=== PATIENT | female | born 1970 | race African-American/Black ===

== ENCOUNTER 2022-08-21 17:36 | Inpatient (IN) | payer BC ==
[~2022-08-21] VITALS: Ht 162.6 cm; Wt 72.2 kg
[2022-08-21] MEDS ORDERED: NICARDIPINE 50 MG in SODIUM CHLORIDE 0.9% 230 ML IV STA ×2 (18:02→18:08)
[2022-08-21] MEDS ORDERED: LEVETIRACETAM 1000MG PREMIX 100 ML IV ONE (18:15)
[2022-08-21] MEDS ORDERED: DEXAMETHASONE 10 MG/ML VIAL IV ONE (18:30)
[2022-08-21 19:51] LABS: BASOPHILS % 0.4 % (0.0-2.0); EOSINOPHILS % 1.7 % (0.0-5.0); HEMATOCRIT. 36.6 % (36.0-48.0); HEMOGLOBIN. 12.4 g/dL (12.0-16.0); LYMPHOCYTES % 22.3 % (20.0-50.0); MEAN CORPUSCULAR HEMOGLOBIN 28.5 pg (28.0-32.0); MEAN CORPUSCULAR VOLUME 83.8 fL (81.0-99.0); MEAN PLATELET VOLUME 7.7 fl (7.4-10.4); MONOCYTES % 6.7 % (2.0-8.0); NEUTROPHILS % 68.9 % (40.0-76.0); PLATELET 325 x1000/uL (130-400); RED BLOOD CELL COUNT 4.37 mill/uL (4.2-5.4)
[2022-08-21 20:13] LABS: CHLORIDE 102 mEq/L (98-107)
[2022-08-21 20:24] LABS: ETHANOL BLOOD < 10 mg/dL
[2022-08-21] MEDS ORDERED: PROPOFOL 10MG/ML 100ML 100 ML IV STA (20:31)
[2022-08-21] MEDS ORDERED: ETOMIDATE 2MG/ML 10ML VIAL IV ONE ×2 (20:42→20:45)
[2022-08-21] MEDS ORDERED: SUCCINYLCHOLINE CHLORIDE 200MG/10ML IV ONE ×2 (20:42→20:45)
[2022-08-21] MEDS ORDERED: FENTANYL 2500MCG/250ML PMX 250 ML IV ONE (20:45)
[2022-08-22] VITALS (62 sets, daily range): BP systolic 118–168; BP diastolic 60–108
[2022-08-22] MEDS ORDERED: PROPOFOL 10MG/ML 100ML 100 ML IV NR (01:45)
[2022-08-22] MEDS ORDERED: ACETAMINOPHEN 650MG SUPP PR PRN (09:45)
[2022-08-22] MEDS ORDERED: NICARDIPINE 50 MG in SODIUM CHLORIDE 0.9% 230 ML IV PRN (09:45)
[2022-08-22] MEDS ORDERED: ONDANSETRON HCL 4MG/2ML INJ IV PRN (09:45)
[2022-08-22] MEDS ORDERED: DEXTROSE 50% WATER 50ML SYRINGE IV PRN (09:45)
[2022-08-22] MEDS: PANTOPRAZOLE SODIUM 40 MG/VIAL IV SCH (10:26)
[2022-08-22] MEDS: DEXT 5%/LACTATED RINGERS 1,000 ML IV SCH (10:27)
[2022-08-22] MEDS: BLOOD SUGAR DIAGNOSTIC STRIP TEST SCH ×3 (11:15→21:00)
[2022-08-22] MEDS: LEVETIRACETAM 500MG PREMIX 100 ML IV SCH ×2 (11:19→21:52)
[2022-08-22] MEDS: DEXAMETHASONE 4MG/ML 1ML VIAL IV SCH ×3 (11:19→23:56)
[2022-08-22] MEDS: INSULIN LISPRO 100 UNITS/ML SUBCUT SCH ×3 (11:23→21:51)
[2022-08-22] MEDS ORDERED: PROPOFOL 10MG/ML 100ML 100 ML IV PRN ×2 (11:30→17:15)
[2022-08-22] MEDS ORDERED: FENTANYL CITRATE/PF 2,500 MCG in SODIUM CHLORIDE 0.9% 200 ML IV PRN (11:30)
[2022-08-22] MEDS: NICARDIPINE 100 MG in SODIUM CHLORIDE 0.9% 60 ML IV PRN ×2 (11:39→18:43)
[2022-08-22 12:08] LABS: BG BASE EXCESS 3.2 mmol/L (-2.0-2.0); BG CARBOXYHEMOGLOBIN 0.5 % (0.5-1.5); BG DEOXYHEMOGLOBIN 0.3 % (0.0-5.0); BG FRACTION INSPIRED OXYGEN 60; BG HCO3 ACT 24.9 mmol/L (22.0-26.0); BG METHEMOGLOBIN 0.1 % (0.0-1.5); BG OXYGEN SATURATION 99.7 % (92.0-98.5); BG OXYHEMOGLOBIN 99.1 % (94.0-97.0); BG PCO2 29.7 mmHg (35.0-45.0); BG PH 7.542 (7.350-7.450); BG PO2 306.1 mmHg (75.0-100.0); BG SAMPLE SITE RIGHT RADIAL; BG TOTAL HEMOGLOBIN 12.9 g/dL (12.0-18.0); BG VENT MODE VENT - AC
[2022-08-22 13:24] LABS: CLARITY URINE CLOUDY (CLEAR); COLOR URINE DARK YELLOW (YELLOW); KETONES URINE TRACE (NEGATIVE); LEUKOCYTE ESTERASE URINE 2+ (NEGATIVE); NITRITE URINE NEGATIVE (NEGATIVE); OCCULT BLOOD URINE 3+ (NEGATIVE); PROTEIN URINE 1+ (NEGATIVE); SPECIFIC GRAVITY URINE 1.035 (1.005-1.030)
[2022-08-22 13:40] LABS: HCG SCREEN NEGATIVE
[2022-08-22 14:13] LABS: *BARBITURATES SCREEN URINE NEGATIVE (NEGATIVE); *BENZODIAZEPINES SCREEN URINE NEGATIVE (NEGATIVE); *COCAINE SCREEN URINE NEGATIVE (NEGATIVE); CANNABINOID URINE SCREEN NEGATIVE (NEGATIVE); METHADONE URINE SCREEN NEGATIVE (NEGATIVE); OPIATES URINE SCREEN NEGATIVE (NEGATIVE); PHENCYCLIDINE URINE SCREEN NEGATIVE (NEGATIVE)
[2022-08-22 14:53] LABS: *AMPHETAMINES SCREEN URINE PRESUMTIVE POSITIVE (NEGATIVE)
[2022-08-22] MEDS: CEFTRIAXONE 1,000 MG in DEXTROSE 5% WATER 50 ML IV SCH (17:44)
[2022-08-23] VITALS (95 sets, daily range): BP systolic 121–165; BP diastolic 51–74
[2022-08-23 00:35] LABS: CREATINE KINASE MB FRACTION 4.3 ng/mL (0.5-3.6)
[2022-08-23 00:41] LABS: PROTHROMBIN TIME 10.8 sec (9.6-11.0)
[2022-08-23] MEDS: NICARDIPINE 100 MG in SODIUM CHLORIDE 0.9% 60 ML IV PRN ×4 (01:45→22:02)
[2022-08-23] MEDS: DEXT 5%/LACTATED RINGERS 1,000 ML IV SCH ×2 (05:27→20:07)
[2022-08-23 05:32] LABS: CHLORIDE 103 mEq/L (98-107)
[2022-08-23 05:43] LABS: HEMATOCRIT 38.6 % (36.0-48.0); HEMOGLOBIN 12.6 g/dL (12.0-16.0); MEAN CORPUSCULAR HEMOGLOBIN 27.8 pg (28.0-32.0); MEAN CORPUSCULAR VOLUME 85.1 fL (81.0-99.0); PLATELET 358 x1000/uL (130-400); RED BLOOD CELL COUNT 4.53 mill/uL (4.2-5.4); RED CELL DISTRIBUTION WIDTH 14.3 % (11.6-14.6)
[2022-08-23] MEDS: BLOOD SUGAR DIAGNOSTIC STRIP TEST SCH ×4 (06:10→20:13)
[2022-08-23] MEDS: DEXAMETHASONE 4MG/ML 1ML VIAL IV SCH ×2 (06:16→11:51)
[2022-08-23] MEDS: INSULIN LISPRO 100 UNITS/ML SUBCUT SCH ×4 (06:17→20:17)
[2022-08-23 07:46] LABS: PROTHROMBIN TIME 10.9 sec (9.6-11.0)
[2022-08-23] MEDS: PANTOPRAZOLE SODIUM 40 MG/VIAL IV SCH (08:01)
[2022-08-23] MEDS: LEVETIRACETAM 500MG PREMIX 100 ML IV SCH ×2 (08:01→20:06)
[2022-08-23 08:27] LABS: BG BASE EXCESS 2.5 mmol/L (-2.0-2.0); BG CARBOXYHEMOGLOBIN 0.3 % (0.5-1.5); BG DEOXYHEMOGLOBIN 1.3 % (0.0-5.0); BG FRACTION INSPIRED OXYGEN 30; BG HCO3 ACT 27.4 mmol/L (22.0-26.0); BG METHEMOGLOBIN 0.3 % (0.0-1.5); BG OXYGEN SATURATION 98.7 % (92.0-98.5); BG OXYHEMOGLOBIN 98.1 % (94.0-97.0); BG PCO2 43.3 mmHg (35.0-45.0); BG PH 7.419 (7.350-7.450); BG PO2 134.1 mmHg (75.0-100.0); BG SAMPLE SITE LEFT RADIAL; BG TOTAL HEMOGLOBIN 12.8 g/dL (12.0-18.0); BG VENT MODE VENT - AC
[2022-08-23 10:37] LABS: BG BASE EXCESS 1.8 mmol/L (-2.0-2.0); BG CARBOXYHEMOGLOBIN 0.3 % (0.5-1.5); BG DEOXYHEMOGLOBIN 0.8 % (0.0-5.0); BG FRACTION INSPIRED OXYGEN 40; BG HCO3 ACT 26.4 mmol/L (22.0-26.0); BG METHEMOGLOBIN 0.3 % (0.0-1.5); BG OXYGEN SATURATION 99.2 % (92.0-98.5); BG OXYHEMOGLOBIN 98.6 % (94.0-97.0); BG PCO2 41.7 mmHg (35.0-45.0); BG SAMPLE SITE RIGHT RADIAL; BG TOTAL HEMOGLOBIN 11.9 g/dL (12.0-18.0); BG VENT MODE VENT - CPAP
[2022-08-23] MEDS: HYDRALAZINE 20MG/ML VIAL IV PRN (11:51)
[2022-08-23] MEDS: CEFTRIAXONE 1,000 MG in DEXTROSE 5% WATER 50 ML IV SCH (17:11)
[2022-08-23] MEDS: ALBUTEROL (0.083%) 2.5MG/3ML NEB HHN SCH (20:28)
[2022-08-23] MEDS ORDERED: DILTIAZEM HCL 5MG/ML 5ML VIAL IV NR (23:30)
[2022-08-23] MEDS ORDERED: DILTIAZEM HCL 125 MG in DEXT 5% WATER 100 ML IV PRN (23:30)
[2022-08-23] MEDS ORDERED: DILTIAZEM HCL 125 MG in DEXTROSE 5% WATER 125 ML IV PRN (23:45)
[2022-08-24] VITALS (94 sets, daily range): BP systolic 113–164; BP diastolic 46–111
[2022-08-24] MEDS: ALBUTEROL (0.083%) 2.5MG/3ML NEB HHN SCH ×4 (01:17→20:22)
[2022-08-24] MEDS: ACETYLCYSTEINE 200MG/ML 20% VIAL 4ML INH SCH ×4 (01:17→13:17)
[2022-08-24 05:35] LABS: HEMATOCRIT 32.5 % (36.0-48.0); HEMOGLOBIN 10.8 g/dL (12.0-16.0); MEAN CORPUSCULAR VOLUME 84.3 fL (81.0-99.0); PLATELET 336 x1000/uL (130-400); RED BLOOD CELL COUNT 3.86 mill/uL (4.2-5.4); RED CELL DISTRIBUTION WIDTH 14.7 % (11.6-14.6)
[2022-08-24 05:36] LABS: PROTHROMBIN TIME 10.9 sec (9.6-11.0)
[2022-08-24] MEDS: NICARDIPINE 100 MG in SODIUM CHLORIDE 0.9% 60 ML IV PRN ×3 (05:39→18:25)
[2022-08-24] MEDS: BLOOD SUGAR DIAGNOSTIC STRIP TEST SCH ×4 (05:42→21:22)
[2022-08-24] MEDS: INSULIN LISPRO 100 UNITS/ML SUBCUT SCH ×4 (05:42→21:29)
[2022-08-24 06:06] LABS: CHLORIDE 109 mEq/L (98-107); PHOSPHORUS 4.2 mg/dL (2.5-4.9); T4 FREE 0.98 ng/dL (0.76-1.46)
[2022-08-24] MEDS: LEVETIRACETAM 500MG PREMIX 100 ML IV SCH ×2 (08:01→21:13)
[2022-08-24] MEDS: PANTOPRAZOLE SODIUM 40 MG/VIAL IV SCH (08:01)
[2022-08-24] MEDS: LACTATED RINGERS 1,000 ML IV SCH (11:16)
[2022-08-24] MEDS: HYDRALAZINE 20MG/ML VIAL IV PRN (12:10)
[2022-08-24] MEDS ORDERED: DEXTROSE 50% WATER 50ML SYRINGE IV PRN (12:45)
[2022-08-24] MEDS ORDERED: CAPTOPRIL 12.5MG TABLET PO SCH ×2 (12:45→17:00)
[2022-08-24] MEDS: METOPROLOL SUCCINATE 50MG ER TABLET PO SCH (13:27)
[2022-08-24] MEDS: LISINOPRIL 5MG TABLET PO SCH (15:47)
[2022-08-24] MEDS ORDERED: BLOOD SUGAR DIAGNOSTIC STRIP TEST SCH (16:30)
[2022-08-24] MEDS: CEFTRIAXONE 1,000 MG in DEXTROSE 5% WATER 50 ML IV SCH (17:12)
[2022-08-24] MEDS: INSULIN GLARGINE 100 UNITS/ML SUBCUT SCH (21:30)
[2022-08-25] VITALS (88 sets, daily range): BP systolic 101–170; BP diastolic 53–104
[2022-08-25] MEDS: ALBUTEROL (0.083%) 2.5MG/3ML NEB HHN SCH ×4 (01:31→19:50)
[2022-08-25] MEDS: LACTATED RINGERS 1,000 ML IV SCH ×2 (04:44→20:38)
[2022-08-25 06:03] LABS: CHLORIDE 111 mEq/L (98-107)
[2022-08-25] MEDS: BLOOD SUGAR DIAGNOSTIC STRIP TEST SCH ×4 (06:13→20:41)
[2022-08-25] MEDS: INSULIN LISPRO 100 UNITS/ML SUBCUT SCH ×4 (06:16→20:45)
[2022-08-25 07:18] LABS: BASOPHILS % 0.1 % (0.0-2.0); HEMATOCRIT. 32.8 % (36.0-48.0); HEMOGLOBIN. 10.6 g/dL (12.0-16.0); MEAN CORPUSCULAR HEMOGLOBIN 27.6 pg (28.0-32.0); MEAN CORPUSCULAR VOLUME 84.9 fL (81.0-99.0); MEAN PLATELET VOLUME 8.5 fl (7.4-10.4); MONOCYTES % 7.8 % (2.0-8.0); NEUTROPHILS % 81.1 % (40.0-76.0); PLATELET 302 x1000/uL (130-400); RED BLOOD CELL COUNT 3.86 mill/uL (4.2-5.4); RED CELL DISTRIBUTION WIDTH 14.5 % (11.6-14.6)
[2022-08-25 07:29] LABS: PROTHROMBIN TIME 10.9 sec (9.6-11.0)
[2022-08-25] MEDS: ACETYLCYSTEINE 200MG/ML 20% VIAL 4ML INH SCH ×2 (07:38→14:00)
[2022-08-25] MEDS: LEVETIRACETAM 500MG PREMIX 100 ML IV SCH ×2 (08:13→20:32)
[2022-08-25] MEDS: METOPROLOL SUCCINATE 50MG ER TABLET PO SCH (08:13)
[2022-08-25] MEDS: PANTOPRAZOLE SODIUM 40 MG/VIAL IV SCH (08:13)
[2022-08-25] MEDS: LISINOPRIL 5MG TABLET PO SCH (08:13)
[2022-08-25] MEDS: CEFTRIAXONE 1,000 MG in DEXTROSE 5% WATER 50 ML IV SCH (17:35)
[2022-08-25] MEDS: HYDRALAZINE 20MG/ML VIAL IV PRN (21:29)
[2022-08-25] MEDS: INSULIN GLARGINE 100 UNITS/ML SUBCUT SCH (21:58)
[2022-08-26] VITALS (49 sets, daily range): BP systolic 122–177; BP diastolic 69–111
[2022-08-26] MEDS: NICARDIPINE 100 MG in SODIUM CHLORIDE 0.9% 60 ML IV PRN (00:08)
[2022-08-26] MEDS: ACETYLCYSTEINE 200MG/ML 20% VIAL 4ML INH SCH ×4 (01:11→13:27)
[2022-08-26] MEDS: ALBUTEROL (0.083%) 2.5MG/3ML NEB HHN SCH ×4 (01:25→21:27)
[2022-08-26 05:28] LABS: PROTHROMBIN TIME 10.6 sec (9.6-11.0)
[2022-08-26 05:35] LABS: CHLORIDE 105 mEq/L (98-107)
[2022-08-26 06:05] LABS: BASOPHILS % 0.1 % (0.0-2.0); EOSINOPHILS % 0.3 % (0.0-5.0); HEMATOCRIT. 38.3 % (36.0-48.0); LYMPHOCYTES % 21.7 % (20.0-50.0); MEAN PLATELET VOLUME 9.5 fl (7.4-10.4); MONOCYTES % 12.7 % (2.0-8.0); NEUTROPHILS % 65.2 % (40.0-76.0); PLATELET 215 x1000/uL (130-400); RED BLOOD CELL COUNT 4.45 mill/uL (4.2-5.4); RED CELL DISTRIBUTION WIDTH 14.7 % (11.6-14.6)
[2022-08-26] MEDS: INSULIN LISPRO 100 UNITS/ML SUBCUT SCH ×4 (06:05→21:38)
[2022-08-26] MEDS: BLOOD SUGAR DIAGNOSTIC STRIP TEST SCH ×4 (06:05→21:27)
[2022-08-26] MEDS: LEVETIRACETAM 500MG PREMIX 100 ML IV SCH (08:24)
[2022-08-26] MEDS: PANTOPRAZOLE SODIUM 40 MG/VIAL IV SCH (08:25)
[2022-08-26] MEDS: LISINOPRIL 5MG TABLET PO SCH (08:28)
[2022-08-26] MEDS: METOPROLOL SUCCINATE 50MG ER TABLET PO SCH (08:28)
[2022-08-26] MEDS: HYDRALAZINE 20MG/ML VIAL IV PRN ×2 (09:38→15:46)
[2022-08-26] MEDS: CLONIDINE 0.1MG TABLET PO PRN ×2 (11:29→23:40)
[2022-08-26] MEDS: CEFTRIAXONE 1,000 MG in DEXTROSE 5% WATER 50 ML IV SCH (17:12)
[2022-08-26] MEDS: LACTATED RINGERS 1,000 ML IV SCH (17:12)
[2022-08-26] MEDS: LEVETIRACETAM 500MG/5ML CUP PO SCH (21:35)
[2022-08-26] MEDS: INSULIN GLARGINE 100 UNITS/ML SUBCUT SCH (21:38)
[2022-08-27] VITALS: BP 157/78
[2022-08-27] MEDS: ALBUTEROL (0.083%) 2.5MG/3ML NEB HHN SCH ×4 (01:11→18:00)
[2022-08-27 04:00] VITALS: BP 120/75
[2022-08-27] MEDS: ACETYLCYSTEINE 200MG/ML 20% VIAL 4ML INH SCH ×3 (06:00→22:00)
[2022-08-27] MEDS: BLOOD SUGAR DIAGNOSTIC STRIP TEST SCH ×4 (06:45→21:00)
[2022-08-27 06:52] LABS: BASOPHILS % 0.6 % (0.0-2.0); EOSINOPHILS % 0.5 % (0.0-5.0); HEMATOCRIT. 35.6 % (36.0-48.0); HEMOGLOBIN. 11.8 g/dL (12.0-16.0); LYMPHOCYTES % 23.9 % (20.0-50.0); MEAN CORPUSCULAR HEMOGLOBIN 27.8 pg (28.0-32.0); MEAN CORPUSCULAR VOLUME 83.7 fL (81.0-99.0); MEAN PLATELET VOLUME 8.1 fl (7.4-10.4); MONOCYTES % 12.1 % (2.0-8.0); NEUTROPHILS % 62.9 % (40.0-76.0); PLATELET 309 x1000/uL (130-400); RED BLOOD CELL COUNT 4.26 mill/uL (4.2-5.4); RED CELL DISTRIBUTION WIDTH 14.1 % (11.6-14.6)
[2022-08-27 06:55] LABS: INR 1.1; PROTHROMBIN TIME 11.3 sec (9.6-11.0)
[2022-08-27 06:58] LABS: CHLORIDE 105 mEq/L (98-107)
[2022-08-27] MEDS: INSULIN LISPRO 100 UNITS/ML SUBCUT SCH ×4 (06:58→21:00)
[2022-08-27 08:00] VITALS: BP 130/95
[2022-08-27] MEDS: PANTOPRAZOLE 40MG DR TABLET PO SCH (08:00)
[2022-08-27] MEDS: LACTATED RINGERS 1,000 ML IV SCH ×2 (08:00→22:20)
[2022-08-27] MEDS ORDERED: LEVETIRACETAM 500MG/5ML CUP PO SCH (09:00)
[2022-08-27] MEDS: LEVETIRACETAM 500MG/5ML CUP PO SCH ×2 (09:00→21:00)
[2022-08-27] MEDS: LISINOPRIL 5MG TABLET PO SCH (09:00)
[2022-08-27] MEDS: METOPROLOL SUCCINATE 50MG ER TABLET PO SCH (09:00)
[2022-08-27] MEDS: QUETIAPINE FUMARATE 50MG TABLET PO SCH ×2 (10:15→21:00)
[2022-08-27] MEDS: CEFTRIAXONE 1,000 MG in DEXTROSE 5% WATER 50 ML IV SCH (17:18)
[2022-08-27] MEDS: INSULIN GLARGINE 100 UNITS/ML SUBCUT SCH (22:00)
[2022-08-28 04:00] VITALS: BP 135/51
[2022-08-28] MEDS: PANTOPRAZOLE 40MG DR TABLET PO SCH (06:52)
[2022-08-28] MEDS: BLOOD SUGAR DIAGNOSTIC STRIP TEST SCH ×4 (06:52→21:03)
[2022-08-28] MEDS: ALBUTEROL (0.083%) 2.5MG/3ML NEB HHN SCH ×4 (07:30→19:45)
[2022-08-28] MEDS: ACETYLCYSTEINE 200MG/ML 20% VIAL 4ML INH SCH ×3 (07:30→19:45)
[2022-08-28 08:00] VITALS: BP 151/88
[2022-08-28 08:46] LABS: HEMATOCRIT 36.5 % (36.0-48.0); HEMOGLOBIN 12.1 g/dL (12.0-16.0); MEAN CORPUSCULAR HEMOGLOBIN 27.8 pg (28.0-32.0); MEAN CORPUSCULAR VOLUME 84.3 fL (81.0-99.0); PLATELET 326 x1000/uL (130-400); RED BLOOD CELL COUNT 4.33 mill/uL (4.2-5.4)
[2022-08-28] MEDS: LEVETIRACETAM 500MG/5ML CUP PO SCH ×2 (08:49→21:00)
[2022-08-28] MEDS: QUETIAPINE FUMARATE 50MG TABLET PO SCH ×2 (08:49→21:00)
[2022-08-28] MEDS: METOPROLOL SUCCINATE 50MG ER TABLET PO SCH (08:50)
[2022-08-28] MEDS: LISINOPRIL 5MG TABLET PO SCH (08:50)
[2022-08-28] MEDS: INSULIN LISPRO 100 UNITS/ML SUBCUT SCH ×4 (08:51→21:08)
[2022-08-28 09:03] LABS: CHLORIDE 103 mEq/L (98-107)
[2022-08-28 12:00] VITALS: BP 148/79
[2022-08-28] MEDS: LACTATED RINGERS 1,000 ML IV SCH (15:00)
[2022-08-28 16:00] VITALS: BP 149/75
[2022-08-28 20:00] VITALS: BP 125/83
[2022-08-28] MEDS: INSULIN GLARGINE 100 UNITS/ML SUBCUT SCH (21:09)
[2022-08-29] VITALS: BP 155/80
[2022-08-29] MEDS: HYDRALAZINE 20MG/ML VIAL IV PRN (01:01)
[2022-08-29 04:00] VITALS: BP_SYST 133; BP_SYST 140; BP_DIAS 58; BP_DIAS 70
[2022-08-29] MEDS: PANTOPRAZOLE 40MG DR TABLET PO SCH (06:25)
[2022-08-29] MEDS: BLOOD SUGAR DIAGNOSTIC STRIP TEST SCH ×4 (06:25→20:15)
[2022-08-29] MEDS: INSULIN LISPRO 100 UNITS/ML SUBCUT SCH ×4 (06:26→20:47)
[2022-08-29 08:00] VITALS: BP 147/81
[2022-08-29] MEDS: QUETIAPINE FUMARATE 50MG TABLET PO SCH ×2 (09:00→20:46)
[2022-08-29] MEDS: LEVETIRACETAM 500MG/5ML CUP PO SCH ×2 (09:44→20:46)
[2022-08-29] MEDS: LISINOPRIL 5MG TABLET PO SCH (09:44)
[2022-08-29] MEDS: METOPROLOL SUCCINATE 50MG ER TABLET PO SCH (09:44)
[2022-08-29] MEDS: LACTATED RINGERS 1,000 ML IV SCH (09:44)
[2022-08-29 12:00] VITALS: BP 146/77
[2022-08-29 16:00] VITALS: BP 145/76
[2022-08-29 17:18] LABS: CHLORIDE 108 mEq/L (98-107)
[2022-08-29 19:18] LABS: HEMATOCRIT 32.9 % (36.0-48.0); HEMOGLOBIN 10.6 g/dL (12.0-16.0); MEAN CORPUSCULAR VOLUME 84.1 fL (81.0-99.0); PLATELET 371 x1000/uL (130-400); RED BLOOD CELL COUNT 3.91 mill/uL (4.2-5.4); RED CELL DISTRIBUTION WIDTH 14.3 % (11.6-14.6)
[2022-08-29 20:00] VITALS: BP 149/87
[2022-08-29] MEDS: INSULIN GLARGINE 100 UNITS/ML SUBCUT SCH (21:02)
[2022-08-30] VITALS: BP 138/66
[2022-08-30] MEDS: LACTATED RINGERS 1,000 ML IV SCH ×2 (03:35→17:00)
[2022-08-30 04:00] VITALS: BP 125/65
[2022-08-30] MEDS: INSULIN LISPRO 100 UNITS/ML SUBCUT SCH ×4 (06:24→20:37)
[2022-08-30] MEDS: BLOOD SUGAR DIAGNOSTIC STRIP TEST SCH ×4 (06:24→20:36)
[2022-08-30 07:00] LABS: HEMATOCRIT 33.5 % (36.0-48.0); MEAN CORPUSCULAR HEMOGLOBIN 27.9 pg (28.0-32.0); MEAN CORPUSCULAR VOLUME 84.9 fL (81.0-99.0); PLATELET 333 x1000/uL (130-400); RED BLOOD CELL COUNT 3.95 mill/uL (4.2-5.4); RED CELL DISTRIBUTION WIDTH 14.2 % (11.6-14.6)
[2022-08-30 07:34] LABS: CHLORIDE 106 mEq/L (98-107)
[2022-08-30 08:00] VITALS: BP 163/84
[2022-08-30] MEDS: LEVETIRACETAM 500MG/5ML CUP PO SCH ×2 (08:37→20:36)
[2022-08-30] MEDS: PANTOPRAZOLE 40MG DR TABLET PO SCH (08:38)
[2022-08-30] MEDS: QUETIAPINE FUMARATE 50MG TABLET PO SCH ×3 (08:38→21:00)
[2022-08-30] MEDS: METOPROLOL SUCCINATE 50MG ER TABLET PO SCH (08:38)
[2022-08-30] MEDS: LISINOPRIL 40MG TABLET PO SCH (08:38)
[2022-08-30] MEDS: CLONIDINE 0.1MG TABLET PO PRN (08:38)
[2022-08-30 12:00] VITALS: BP 113/71
[2022-08-30 16:00] VITALS: BP 122/67
[2022-08-30] MEDS: INSULIN GLARGINE 100 UNITS/ML SUBCUT SCH (21:01)
[2022-08-31] VITALS: BP 133/73
[2022-08-31 04:00] VITALS: BP 143/78
[2022-08-31] MEDS: BLOOD SUGAR DIAGNOSTIC STRIP TEST SCH ×5 (05:51→21:00)
[2022-08-31 06:33] LABS: HEMATOCRIT 33.5 % (36.0-48.0); HEMOGLOBIN 11.2 g/dL (12.0-16.0); MEAN CORPUSCULAR VOLUME 83.9 fL (81.0-99.0); PLATELET 374 x1000/uL (130-400); RED BLOOD CELL COUNT 3.99 mill/uL (4.2-5.4); RED CELL DISTRIBUTION WIDTH 13.9 % (11.6-14.6)
[2022-08-31] MEDS: CLONIDINE 0.1MG TABLET PO PRN (06:45)
[2022-08-31] MEDS: PANTOPRAZOLE 40MG DR TABLET PO SCH (06:49)
[2022-08-31] MEDS: INSULIN LISPRO 100 UNITS/ML SUBCUT SCH ×5 (07:12→22:11)
[2022-08-31] MEDS: LACTATED RINGERS 1,000 ML IV SCH (07:15)
[2022-08-31] MEDS: METOPROLOL SUCCINATE 50MG ER TABLET PO SCH (08:07)
[2022-08-31] MEDS: QUETIAPINE FUMARATE 50MG TABLET PO SCH ×2 (08:07→21:00)
[2022-08-31] MEDS: LEVETIRACETAM 500MG/5ML CUP PO SCH ×2 (08:07→21:00)
[2022-08-31] MEDS: LISINOPRIL 40MG TABLET PO SCH (08:08)
[2022-08-31 08:30] LABS: CHLORIDE 106 mEq/L (98-107)
[2022-08-31 08:39] VITALS: BP 128/78
[2022-08-31 12:00] VITALS: BP 135/84
[2022-08-31 16:00] VITALS: BP 127/68
[2022-08-31 20:00] VITALS: BP 128/76
[2022-08-31] MEDS: INSULIN GLARGINE 100 UNITS/ML SUBCUT SCH (22:10)
[2022-09-01] VITALS: BP 144/75
[2022-09-01] MEDS: LACTATED RINGERS 1,000 ML IV SCH ×2 (02:20→19:00)
[2022-09-01 04:00] VITALS: BP 137/83
[2022-09-01] MEDS: PANTOPRAZOLE 40MG DR TABLET PO SCH (06:37)
[2022-09-01] MEDS: BLOOD SUGAR DIAGNOSTIC STRIP TEST SCH ×4 (07:06→21:00)
[2022-09-01 08:00] VITALS: BP 72/36
[2022-09-01] MEDS: QUETIAPINE FUMARATE 50MG TABLET PO SCH ×2 (09:56→21:42)
[2022-09-01] MEDS: LEVETIRACETAM 500MG/5ML CUP PO SCH ×2 (09:56→21:00)
[2022-09-01] MEDS: LISINOPRIL 40MG TABLET PO SCH (09:56)
[2022-09-01] MEDS: METOPROLOL SUCCINATE 50MG ER TABLET PO SCH (09:57)
[2022-09-01 10:14] LABS: HEMATOCRIT 32.5 % (36.0-48.0); HEMOGLOBIN 10.7 g/dL (12.0-16.0); MEAN CORPUSCULAR HEMOGLOBIN 27.9 pg (28.0-32.0); MEAN CORPUSCULAR VOLUME 84.6 fL (81.0-99.0); PLATELET 339 x1000/uL (130-400); RED BLOOD CELL COUNT 3.84 mill/uL (4.2-5.4); RED CELL DISTRIBUTION WIDTH 14.1 % (11.6-14.6)
[2022-09-01] MEDS: INSULIN LISPRO 100 UNITS/ML SUBCUT SCH ×4 (10:28→21:46)
[2022-09-01 10:32] LABS: CHLORIDE 105 mEq/L (98-107)
[2022-09-01 11:59] VITALS: BP 168/77
[2022-09-01 16:00] VITALS: BP 138/64
[2022-09-01 20:00] VITALS: BP 135/66
[2022-09-01] MEDS ORDERED: VANCOMYCIN 1250MG in DEXTROSE 5% WATER 250ML IV NR (20:00)
[2022-09-01] MEDS: SULFAMETHOXAZOLE/TRIMETHOPRIM 800/160MG TABLET PO SCH (21:41)
[2022-09-01] MEDS: INSULIN GLARGINE 100 UNITS/ML SUBCUT SCH (22:14)
[2022-09-02] VITALS (7 sets, daily range): BP systolic 132–157; BP diastolic 62–91
[2022-09-02] MEDS: INSULIN LISPRO 100 UNITS/ML SUBCUT SCH ×4 (07:50→20:48)
[2022-09-02] MEDS: BLOOD SUGAR DIAGNOSTIC STRIP TEST SCH ×4 (08:14→20:49)
[2022-09-02] MEDS ORDERED: VANCOMYCIN 1G PREMIX 200 ML IV SCH (09:00)
[2022-09-02] MEDS: LISINOPRIL 40MG TABLET PO SCH (09:18)
[2022-09-02] MEDS: LEVETIRACETAM 500MG/5ML CUP PO SCH ×2 (09:18→20:48)
[2022-09-02] MEDS: SULFAMETHOXAZOLE/TRIMETHOPRIM 800/160MG TABLET PO SCH ×2 (09:18→20:48)
[2022-09-02] MEDS: METOPROLOL SUCCINATE 50MG ER TABLET PO SCH (09:18)
[2022-09-02] MEDS: FAMOTIDINE 20MG TABLET PO SCH ×2 (09:18→20:48)
[2022-09-02 17:44] LABS: BASOPHILS % 0.3 % (0.0-2.0); EOSINOPHILS % 1.3 % (0.0-5.0); HEMATOCRIT. 32.7 % (36.0-48.0); HEMOGLOBIN. 10.8 g/dL (12.0-16.0); LYMPHOCYTES % 24.2 % (20.0-50.0); MEAN CORPUSCULAR VOLUME 84.9 fL (81.0-99.0); MEAN PLATELET VOLUME 8.2 fl (7.4-10.4); NEUTROPHILS % 67.2 % (40.0-76.0); PLATELET 404 x1000/uL (130-400); RED BLOOD CELL COUNT 3.85 mill/uL (4.2-5.4); RED CELL DISTRIBUTION WIDTH 14.1 % (11.6-14.6)
[2022-09-02 17:56] LABS: CHLORIDE 106 mEq/L (98-107)
[2022-09-02] MEDS: QUETIAPINE FUMARATE 50MG TABLET PO SCH (20:47)
[2022-09-02] MEDS: INSULIN GLARGINE 100 UNITS/ML SUBCUT SCH (20:49)
[2022-09-03] VITALS: BP 142/75
[2022-09-03 04:00] VITALS: BP 147/86
[2022-09-03] MEDS: BLOOD SUGAR DIAGNOSTIC STRIP TEST SCH ×2 (06:34→12:24)
[2022-09-03 08:00] VITALS: BP 153/93
[2022-09-03] MEDS: INSULIN LISPRO 100 UNITS/ML SUBCUT SCH ×2 (08:32→12:50)
[2022-09-03] MEDS: SULFAMETHOXAZOLE/TRIMETHOPRIM 800/160MG TABLET PO SCH (08:33)
[2022-09-03] MEDS: LEVETIRACETAM 500MG/5ML CUP PO SCH (08:33)
[2022-09-03] MEDS: FAMOTIDINE 20MG TABLET PO SCH (08:33)
[2022-09-03] MEDS: METOPROLOL SUCCINATE 50MG ER TABLET PO SCH (08:38)
[2022-09-03] MEDS: LISINOPRIL 40MG TABLET PO SCH (08:38)
[2022-09-03] MEDS ORDERED: KEPPSOL PO (10:51)
[2022-09-03] MEDS ORDERED: METO-385 PO (10:51)
[2022-09-03] MEDS ORDERED: LISI40TA13 PO (10:51)
[2022-09-03] MEDS ORDERED: SULF1TAB44 PO (10:51)
[2022-09-03] MEDS ORDERED: QUET50TA PO (10:51)
[2022-09-03] MEDS ORDERED: METF-414 MT (10:51)
[2022-09-03 12:00] VITALS: BP 168/90
[2022-09-03] MEDS: CLONIDINE 0.1MG TABLET PO PRN (15:19)
== END 2022-09-03 15:40 | DRG 208 ==
LOC: ER 17:36 → MICUSO 19:29 → EDBEDREQTM 19:39 → EDBEDREQ 19:39 → EDBEDREQSVC 19:39 → 8WST 08-26 16:23 → 6EST 08-31 17:02
PROVIDERS: ADMIT Internal Medicine; ATTEND Internal Medicine
PROC: 5A1945Z Respiratory Ventilation, 24-96 Consecutive Hours (ICD-10-PCS; principal; 2022-08-21)
PROC: 0BH17EZ Insertion of Endotracheal Airway into Trachea, Via Natural or Artificial Opening (ICD-10-PCS; 2022-08-21)
DX: J96.01 Acute respiratory failure with hypoxia (principal); I61.9 Nontraumatic intracerebral hemorrhage, unspecified; G92.8 Other toxic encephalopathy; I16.1 Hypertensive emergency; I62.9 Nontraumatic intracranial hemorrhage, unspecified; I10 Essential (primary) hypertension; E78.5 Hyperlipidemia, unspecified; Z20.822 Contact with and (suspected) exposure to COVID-19; D72.829 Elevated white blood cell count, unspecified; E11.9 Type 2 diabetes mellitus without complications; F19.90 Other psychoactive substance use, unspecified, uncomplicated; F15.10 Other stimulant abuse, uncomplicated; Z86.73 Personal history of transient ischemic attack (TIA), and cerebral infarction without residual deficits; Z89.211 Acquired absence of right upper limb below elbow
CPT/HCPCS: 31500; 36415; 36600; 71045; 76881; 80053; 80061; 80305; 80320; 81003; 82375; 82550; 82553; 82805; 82962; 83036; 83605; 83735; 84100; 84145; 84295; 84439; 84443; 84478; 84484; 84703; 85025; 85027; 85384; 87070; 87426; 92610; 93005; 93306; 94002; 94003; 94640; 97110; 97112; 97163; 97167; 97530; 99291; A6261; C1893; C9113; G0378; J0330; J0360; J0696; J1100; J1815; J1953; J2704; J3010; J3370; J3490; J7050; J7060; J7120; J7121; J7608; G0480